=== PATIENT | female | born 1960 | race Caucasian/White ===

== ENCOUNTER → 2016-12-12 | Day surgery (SDC) | payer BC ==
[~2016-12-12] MED LIST: LIDOCAINE 1% INJ-PF (10 MG/ML) 30 ML SDV ONE
--- NOTE | 2016-12-12 14:52 | RADIOLOGY REPORT (SQ) ---
EXAM DESCRIPTION: CT RT LOWER EXTREMITY WITH COMPLETED DATE/TIME: 12/12/2016 1:56 pm REASON FOR STUDY: PAIN IN RIGHT KNEE M25.561 PAIN IN RIGHT KNEE COMPARISON: MRI right knee 04/13/2014 TECHNIQUE: Post arthrographic imaging performed through the right knee with reformatted coronal and sagittal imaging windowed for bone and soft tissues. All CT scanners at this facility use dose modulation, iterative reconstruction, and/or weight based d osing when appropriate to reduce radiation dose to as low as reasonably achievable (ALARA). [facility]: Dose Right [facility]: CareDose [facility]: Dose Right [facility]: Teradose 4D [facility]: [employer] RADIATION DOSE: Up-to-date CT equipment and radiation dose reduction techniques were employed. CTDIv ol: 4.6 mGy. DLP: 126 mGy-cm. mGy. LIMITATIONS: Minimal metallic artifact from medial compartment hemiarthroplasty FINDINGS: SOFT TISSUES: 4 x 1 cm Witt's cyst. Minimal artifact from medial compartment hemiarthrop lasty. BONES: No suspicious bone lesion. No fracture. No lucency around the medial compartment hardware wo rrisome for loosening. JOINT DISTENTION: Adequate distention with contrast. No intra-articular loose bodies. CHONDRAL SURFACES: Preserved articular cartilage in the patellofemoral compartment and lateral compar tment. Medial hemiarthroplasty MENISCI: Lateral meniscus is intact. OTHER: There is contrast tracking centrally within the intra cruciate ligament on the coronal reconst ruction images 26-28. ACL is very difficult to visualize on sagittal reconstructions, worrisome for tear. IMPRESSION: Post medial hemiarthroplasty. There is no lucency around the hardware worrisome for loo sening. No lateral meniscal tear identified Abnormal ACL, suspect ACL tear TECHNICAL DOCUMENTATION: JOB ID: [id number] Quality ID # [id number]: Final reports with documentation of one or more dose reduction techniques (e.g., Au tomated exposure control, adjustment of the mA and/or kV according to patient size, use of iterative reconstruction technique) 2010 [employer]- All Rights Reserved
--- NOTE | 2016-12-12 14:56 | RADIOLOGY REPORT (SQ) ---
EXAM DESCRIPTION: ARTHRO KNEE INJECTION; FLUORO/NEEDLE PLACEMENT COMPLETED DATE/TIME: 12/12/2016 1:53 pm REASON FOR STUDY: PAIN IN RIGHT KNEE M25.561 PAIN IN RIGHT KNEE COMPARISON: MRI right knee 04/13/2014 FLUOROSCOPY TIME: 0.9 minutes 15 digital radiographic images saved to PACS. LIMITATIONS: None. PROCEDURE: Procedure, risks, benefits and alternatives explained to patient who then gave written c onsent. The right knee was marked and a time-out was called for correct marking verification. Entry site marked using fluoroscopic guidance. Knee prepped and draped using sterile technique. Local a nesthesia achieved using 2 mL of 1% lidocaine injection. 22 gauge needle introduced into the joint s pace under direct fluoroscopic visualization. Non-ionic contrast instilled to confirm intra-articula r position. Dilute gadolinium solution then injected. Needle removed and entry site covered with s terile bandage. No immediate complications noted. TECHNIQUE: Digital images acquired during fluoroscopy and stored on PACS. Patient immediately take n to the MR suite for additional imaging. INJECTION LOCATION: Right lateral knee retro patellar space CONTRAST TYPE AND AMOUNT: 4 mL of Isovue 300, followed by 40 mL of dilute Isovue for post arthrogram CT Multiple arthrogram images were obtained. There is a moderate-sized Witt's cyst. Limited view of t he lateral meniscus on arthrogram is normal. There is tracking of contrast into the anterior cruciat e ligament IMPRESSION: SUCCESSFUL NEEDLE PLACEMENT AND INJECTION FOR RIGHT KNEE MR ARTHROGRAM. COMMENT: Quality ID [id number]: Final reports for procedures using fluoroscopy that document radiation exp osure indices, or exposure time and number of fluorographic images (if radiation exposure indices are not available) TECHNICAL DOCUMENTATION: JOB ID: [id number] [employer]- All Rights Reserved
== END ==
LOC: RAD 12:29
PROVIDERS: ATTEND Physician Assistant Surgical
PROC: BQ07ZZZ Plain Radiography of Right Knee (ICD-10-PCS; principal; 2016-12-12)
DX: M25.561 Pain in right knee (principal); M71.21 Synovial cyst of popliteal space [Baker], right knee
CPT/HCPCS: 77002; 27370; 73701; J3490

== ENCOUNTER → 2017-01-26 | Outpatient (CLI) | payer BC ==
--- NOTE | 2017-01-26 14:40 | RADIOLOGY REPORT (SQ) ---
EXAM DESCRIPTION: MRI RT LOWER JOINT WITHOUT COMPLETED DATE/TIME: 01/26/2017 12:22 pm REASON FOR STUDY: LATERAL MENISCAL TEAR RT KNEE S83.281A OTH TEAR OF LAT MENSC, CURRENT INJURY, RIG HT KNEE, COMPARISON: 04/13/2014 TECHNIQUE: Rightknee images acquired and stored on PACS. Multiplanar images include fat sensitive s equences as T1, water sensitive sequences as FST2 or STIR, cartilage sensitive sequences as FSPD, and gradient echo sequences. Metal reduction sequences. LIMITATIONS: Susceptibility artifact status post medial knee arthroplasty. FINDINGS: The medial structures are not interpretable due to artifact. Lateral meniscus is intact. Unchanged attenuated ACL. PCL and collateral ligaments are intact. No marrow edema. Quadriceps in tact. No joint effusion. IMPRESSION: Technically limited study. No lateral meniscal tear identified. TECHNICAL DOCUMENTATION: JOB ID: [id number] [employer]- All Rights Reserved
== END ==
LOC: RAD 10:45
PROVIDERS: ATTEND Orthopaedic Surgery
DX: S83.281A Other tear of lateral meniscus, current injury, right knee, initial encounter (principal); X58.XXXA Exposure to other specified factors, initial encounter